=== PATIENT | female | born 1960 | race Caucasian/White ===

== ENCOUNTER → 2020-10-25 01:20 | Outpatient (CLI) | payer OTHER, SELFPAY ==
[2020-10-26 00:21] LABS: SARS-CoV-2 RNA PCR Positive
== END ==
PROVIDERS: Visit Provider Orthopaedic Surgery
DX: U07.1 COVID-19 (principal); Z01.812 Encounter for preprocedural laboratory examination
CPT/HCPCS: C9803; U0003; U0005

== ENCOUNTER 2020-12-31 01:50 | Day surgery (SDC) | payer OTHER, SELFPAY ==
--- NOTE | 2020-10-24 12:39 | PM.IMHP ---
H&P: HPI History of Present Illness Date/Time: 10/24/20 12:39 Chief Complaint: Right knee pain, medial meniscal tear Narrative: Adelaide Gutierrez is a 59 year old female Who presents with an ongoing history of right knee pain. She has pain and aching along the medial portion of the right knee. Her pain is worse with activity somewhat relieved by rest. She has problems twisting or turning squatting kneeling going up and down stairs. She reports mechanical symptoms and swelling at times and despite conservative measures including cortisone therapy and anti-inflammatories as symptoms continue. This has been going on for several months now despite conservative measures her symptoms continued and an MRI scan was performed. An MRI scan shows a small knee joint effusion, reactive bone marrow signal intensity is noted in the distal femur medially and proximal medial tibial plateau with subchondral reactive changes noted in the anterior distal femur. There is severe chondromalacia medially and at the medial patellar facet. Stabilizing ligaments were noted to be unremarkable. Lateral meniscus is unremarkable. Medial meniscus shows a 2 mm medial extrusion but the radiologist is not reported definitive communicating tear. Dr. Garnica has reviewed the x-rays and MRI scan of the knee and feels as though it is evident that the patient has a tear of the medial meniscal body. At this point the patient has discussed further treatment options in detail with Dr. Garnica she is where she has pre-existing osteoarthritis and may not get full relief of her knee pain from knee arthroscopy however she would like to proceed. Review of Systems Review of Systems: All systems reviewed & are unremarkable except as noted in HPI and below Exam Narrative: Exam Narrative: The patient is noted be a well-developed well-nourished female no acute distress. She is alert and oriented x3. Normal mood and affect. The patient is 5 feet 3 in tall, 182 lb with a BMI of 30.2. Hearing and vision intact. Respiratory is good no distress. Pulse regular rate rhythm. Abdomen benign. Extremities showed the patient's right knee to be painful with manipulation range of motion. She has tenderness on the medial joint line with positive Power exam negative Katharina knee joint is otherwise stable strength is 5 5. She has mild subpatellar crepitation effusion and swelling no erythema heat or other signs of infection. Hips move well with negative Stinchfield negative Martha. Knee joint is otherwise stable neurovascular the patient is intact skin is intact central nervous system exam within normal limits. Assessment and Plan Additional Plan By MRI and exam the patient is noted to have a medial meniscal tear of the right knee with the above associated findings. The patient is jay risks benefits limitations and alternatives of surgery in great detail with Dr. Garnica she is now ready to proceed with right knee arthroscopy partial medial meniscectomy proceed as indicated. The patient is scheduled to undergo surgery 10/29/[address] [facility] [address] Garnica. The patient voiced understanding and agrees with the above plan.
[2020-12-16 15:49] VITALS: BMI 34.0
--- NOTE | 2020-12-29 13:35 | PM.IMHP ---
H&P: HPI History of Present Illness Date/Time: 12/29/20 13:35 The patient is a 60-year-old female who sees Dr. Garnica regarding her right knee pain. The patient has a chronic ongoing history of pain localized to the knee particularly over the medial portion. Patient has aching pain worse with activities somewhat relieved by rest has trouble twisting or turning squatting kneeling going up and down stairs reports mechanical symptoms also. Despite conservative measures including cortisone therapy and anti-inflammatories swelling and catching sensation and medial-sided knee pain continue. Exam is consistent with medial meniscal tear of the right knee. An MRI scan was performed this demonstrates a 2 mm medial extrusion of the medial meniscus, there was also advanced chondromalacia medially and at the medial patellar facet. Dr. Garnica has reviewed the MRI in detail and states that he feels there is a tear of the medial meniscus. The patient is aware that she has pre-existing osteoarthritis and may not get full relief for her knee pain from knee arthroscopy however she would like to proceed with knee arthroscopy after having discussed risks benefits limitations and alternatives to surgery in great detail with Dr. Garnica. Chief Complaint: Right knee pain due to medial meniscal tear Review of Systems Review of Systems: All systems reviewed & are unremarkable except as noted in HPI and below PMFSH Social History Social History Smoking packs per day: 0.5 Smoking cigarettes per day: 10.0 Years smoked: 35 Smoking pack-years: 17.50 Smoking status: Former smoker Tobacco type: cigarettes Smoking end date: 09/19/20 Alcohol intake: current Alcohol use details: 1-2/MONTH Substance use: never Substance use type: does not use Living arrangements: with family Spiritual care concerns: No Meds Home Medications and Allergies Home Medications Medication Instructions Recorded Confirmed Type calcium carbonate-vitamin D3 1 tablet PO DAILY 12/16/20 12/16/20 History cyclobenzaprine 10 mg PO HS 12/16/20 12/16/20 History docusate sodium 100 mg PO BID 12/16/20 12/16/20 History ergocalciferol (vitamin D2) 1,250 mcg PO WEEKLY 12/16/20 12/16/20 History escitalopram oxalate 10 mg PO DAILY 12/16/20 12/16/20 History estradiol-norethindrone acet 1 tablet PO DAILY 12/16/20 12/16/20 History [Mimvey] hydrocodone-acetaminophen 1 tablet PO TID PRN 12/16/20 12/16/20 History meclizine 12.5 mg PO TID PRN 12/16/20 12/16/20 History multivitamin [Daily-Mat] 1 tablet PO DAILY 12/16/20 12/16/20 History omeprazole 20 mg PO DAILY 12/16/20 12/16/20 History Allergies Allergy/AdvReac Type Severity Reaction Status Date / Time No Known Allergies Allergy Verified 12/16/20 15:45 Exam Narrative: Exam Narrative: On exam today the patient is noted be a well-developed well-nourished female no acute distress she is alert oriented x3. Normal mood and affect. HEENT exam within normal limits. Heart regular rate rhythm heard lungs clear auscultation. Abdomen benign. Extremities showed the patient's right knee to be painful with manipulation and range of motion, she has a positive Power exam negative Katharina knee joint is otherwise stable strength is 5 5 mild subpatellar crepitation mild effusion swelling is noted with tenderness on the medial joint line. Full range of motion but pain with extremes of motion is noted. MRI scan is as above with a medial meniscal tear and above associated findings. Skin is intact neurovascularly she is intact central nervous system exam within normal limits. Assessment and Plan Additional Plan by MRI and exam the patient is noted to have a medial meniscal tear with above associated findings right knee. The patient has discussed risks benefits limitations and alternatives to surgery in great detail with Dr. Garnica she has noted proceed with right knee ar
[2020-12-31] VITALS (8 sets, daily range): BP systolic 89–127; BP diastolic 49–84; PULSE 72–102; RESP 12–16; TEMP 36.6–36.8; O2SAT 98–100; BMI 34.3
--- NOTE | 2020-12-31 07:32 | WPDANESEPPF ---
Anes - Initial Pre Proc Eval Procedure: Operation Date: 12/31/20 10:00 Proposed Procedures p Right Knee Arthroscopy, Partial Medial Meniscectomy, Proceed As Indicated - Frantz Garnica MD Date/Time: 12/31/20 07:32 Surgeon: Frantz Garnica MD Pre Op Diagnosis: Right Knee Medial Mensicus Tear Patient Data Age: 60 Gender: F Height: 5 ft 3 in Weight: 88 kg Last Vital Signs Temp 36.6 C 12/31/20 07:30 Pulse 80 12/31/20 07:30 Resp 16 12/31/20 07:30 BP 127/70 12/31/20 07:30 Pulse Ox 99 12/31/20 07:30 Allergies Allergy/AdvReac Type Severity Reaction Status Date / Time No Known Allergies Allergy Verified 12/31/20 07:20 Home Medications Medication Instructions Recorded Confirmed Type calcium carbonate-vitamin D3 1 tablet PO DAILY 12/16/20 12/16/20 History cyclobenzaprine 10 mg PO HS 12/16/20 12/16/20 History docusate sodium 100 mg PO BID 12/16/20 12/16/20 History ergocalciferol (vitamin D2) 1,250 mcg PO WEEKLY 12/16/20 12/16/20 History escitalopram oxalate 10 mg PO DAILY 12/16/20 12/16/20 History estradiol-norethindrone acet 1 tablet PO DAILY 12/16/20 12/16/20 History [Mimvey] hydrocodone-acetaminophen 1 tablet PO TID PRN 12/16/20 12/16/20 History meclizine 12.5 mg PO TID PRN 12/16/20 12/16/20 History multivitamin [Daily-Mat] 1 tablet PO DAILY 12/16/20 12/16/20 History omeprazole 20 mg PO DAILY 12/16/20 12/16/20 History Patient hx anesthesia problems: none Family hx anesthesia problems: none PMFSH Past Medical History Medical History Hyperlipidemia Obesity Smoker Surgical History Surgical History (Updated 12/31/20 @ 07:32 by Rakesh Little MD) History of cholecystectomy Social History Social History Smoking packs per day: 0.5 Smoking cigarettes per day: 10.0 Years smoked: 35 Smoking pack-years: 17.50 Smoking status: Former smoker Tobacco type: cigarettes Smoking end date: 09/19/20 Alcohol intake: current Alcohol use details: 1-2/MONTH Substance use: never Substance use type: does not use Living arrangements: with family Spiritual care concerns: No Anes - Eval Final PreProcedure Day of Procedure 12/31/20 07:32 Patient weight: obese Heart: regular rate and rhythm Lungs: clear to auscultation Airway: Mallampati scale class II Neurological: alert and oriented Last oral intake: >/= 8 hours ASA classification: III Emergent: no Anesthetic plan: proceed Anesthesia type and monitoring: general ETT and standard monitoring Informed Consent: The patient's anesthetic plan and its attendant risks and benefits were discussed with the patient/family/POA. Questions were solicited and answers provided to the satisfaction of the patient/family/POA.
[2020-12-31] MEDS: LACTATED RINGERS 1,000 ML 30 ML IV CONT (07:38)
[2020-12-31] MEDS: ACETAMINOPHEN 500 MG TABLET 1000 MG PO (07:39)
[2020-12-31] MEDS: KETOROLAC 15 MG/ML VIAL (*BKC) IV PUSH (07:39)
--- NOTE | 2020-12-31 07:40 | WPDHPUPDATE1 ---
History and Physical Update Update Date/Time: 12/31/20 07:40 History and Physical has been reviewed, including an updated exam of the patient. There are NO changes in the patient's condition. Risks, benefits, and alternatives have been discussed and questions answered. Patient agrees to proceed with procedure.
[2020-12-31] MEDS: ceFAZolin 2 GM/D5W 50 ML 2 GM/50 ML BAG IVPB (07:47)
[2020-12-31] MEDS: LIDO 1%/EPINEPHRINE 1:100,000 50 ML VIAL INFILTRATE (08:21)
--- NOTE | 2020-12-31 08:33 | PM.PROC ---
Procedure Note - Detailed Date of procedure: 12/31/20 Pre-op diagnosis: Right Knee Medial Mensicus Tear Post-op diagnosis: same Procedure performed: [Right] knee arthroscopy with partial meniscetomy Description of procedure: Patient brought to the operating room and anesthetic was administered. The knee was steriley prepped and drapped in the usual manner. Standard portals were used. Superior medial portal was used for the outflow cannula, inferior lateral portal was used for the scope, inferior medial portal was used for the instruments. Arthroscopy was performed, the patellar femoral joint degenerative changes. The medial compartment showed a complex tear. The lateral compartment showed fraying. The ACL was intact. Using baskets and oscar the meniscal tear was trimmed back to a stable base so the nothing further could be pulled into the joint. Any loose or delaminated fragments were gently trimmed to a stable base. At this point the instruments were withdrawn, sutures placed and patient left the operating room in satisfactory condition. Notable findings include a plica which was debrided and the fairly significant chondromalacia particularly in the patellofemoral area medially where the plica rub as well as medially where the tear was Anesthesia: DAVID Surgeon: Frantz Garnica MD Estimated blood loss (mL): 20 Drains: No Packing: No Pathology: none sent Complications: No immediate complications Condition: stable Disposition: PACU
[2020-12-31] MEDS: fentaNYL CITRATE INJ (*CRX) 100 MCG/2 ML VIAL 25 MCG IV PUSH ×4 (09:13→09:22)
[2020-12-31] MEDS: oxyCODONE HCL (*CRX) 5 MG TAB IR PO (10:04)
== END 2020-12-31 10:50 | disposition home or self-care (01) ==
PROVIDERS: PCP Physician Assistant; Visit Provider Orthopaedic Surgery
PROC: (CPT 29870; principal; 2020-12-31 10:00)
DX: M23.331 Other meniscus derangements, other medial meniscus, right knee (principal); M22.41 Chondromalacia patellae, right knee; E78.5 Hyperlipidemia, unspecified; E66.9 Obesity, unspecified; Z68.34 Body mass index [BMI] 34.0-34.9, adult; Z87.891 Personal history of nicotine dependence
CPT/HCPCS: 29881; A9270; J0690; J1100; J1885; J2250; J2405; J2704; J3010; J7120